=== PATIENT | male | born 1985 | race Hispanic/Latino ===

== ENCOUNTER 2016-05-14 15:36 | Emergency (ER) | payer MEDICAID ==
[2016-05-14] MEDS ORDERED: BACITRACIN 1 APP/PKT PKT TOPICAL ONE (16:05)
[2016-05-14] MEDS ORDERED: LIDOCAINE HCL 2% 20 ML VIAL ONE (16:05)
--- NOTE | 2016-05-14 16:59 | ER NURSING DOCUMENTATION ---
Nurse's Notes [facility] Name:Johnnie Freeman Age:30 yrs Sex:Male :1985 Arrival Date:05/14/2016 Time:15:36 Bed6 Private MD: Diagnosis:Finger Laceration Presentation: 05/14 15:48 Presenting complaint: Patient states: pt slipped with a knife and cut his left pointer st finger. Transition of care: patient was not received from another setting of care. 15:48 Acuity: FAYE 4 st 15:48 Method Of Arrival: Private Vehicle st Triage Assessment: 15:50 General: Appears in no apparent distress, Behavior is cooperative. Pain: Complains of st pain in dorsal aspect of middle phalanx of left index finger Pain currently is 1 out of 10 on a pain scale. Cardiovascular: No deficits noted. Respiratory: No deficits noted. GI: No deficits noted. 15:50 Injury Description: Laceration sustained to dorsal aspect of middle phalanx of left st index finger is large flap that is barley holding on over the index finger knuckle. Historical: - Allergies: Lamictal; - Home Meds: 1. Prednisone Oral 2. Wellbutrin Oral 3. Neurontin Oral - PMHx: DEPRESSION; BIPOLAR DISORDER; - PSHx: None; - Tetanus: > 10 years. - Ebola Screening: : Patient denies exposure to infectious person. Patient denies travel to an Ebola-affected area in the 21 days before illness onset. . - Social history: Smoking status: Patient uses tobacco products, current every day smoker. Patient uses alcohol on a daily basis. marijuana. Screenin:50 Infectious Disease Risk None. Abuse screen: Denies threats or abuse. Denies injuries st from another. pt feels safe at home. Nutritional screening: No deficits noted. Vital Signs: 15:45 BP 129 / 63; Pulse 116; Pulse Ox 93% on R/A; Pain 1/10; st ED Course: 15:41 Patient arrived in ED. ama 15:48 Kera Garcia, RN is Primary Nurse. st 15:[address] 15:50 Valuables Remains with patient Patient has correct armband on for positive st identification. Bed in low position. 15:52 Emmett Baker MD is Attending Physician. sc 16:03 Wound care was Irrigation Normal Saline. st 16:50 Wound care was dressed with band aid, skin flap cut off. st Administered Medications: No medications were administered Outcome: 16:45 Discharge ordered by . sc 16:57 Discharged to home ambulatory, with friend. cb 16:57 Condition: good 16:57 Discharge Assessment: Patient awake, alert and oriented x 3. No cognitive and/or functional deficits noted. Patient verbalized understanding of disposition instructions. 16:57 Discharge instructions given to patient, Instructed on discharge instructions, follow up and referral plans. Demonstrated understanding of instructions. 16:59 Patient left the ED. cb Signatures: Sera Workman, RN RN Kera Coates RN RN Emmett Brink MD MD sc Averdick, Andrew, Reg Reg ama
--- NOTE | 2016-05-14 16:59 | ER PHYSICIAN DOCUMENTATION ---
Physician Documentation [facility] Name:Johnnie Freeman Age:30 yrs Sex:Male :1985 Arrival Date:05/14/2016 Time:15:36 Bed6 Private MD: Emmett Florian Disposition: 05/14/16 16:45 Discharged to Home/Self Care. Impression: Finger Laceration. - Condition is Good. - Discharge Instructions: FINGER LACERATION - LACERATION, Hand. - Medical Reconciliation form form. - Follow up: Emergency Department; When: As needed; Reason: Worsening of condition. - Problem is new. - Symptoms have improved. HPI: 05/14 16:45 This 30 yrs old Male presents to ER via Private Vehicle with complaints of sc LACERATION TO FINGER. 16:45 The patient or guardian reports injury, skin avulsion from knife. The complaints affect sc the dorsal aspect of middle phalanx of right index finger. Context: The problem was sustained outdoors, resulted from cut. Onset: The symptom(s)/episode began/occurred just prior to arrival. Associated signs and symptoms: The patient has no apparent associated signs or symptoms. Historical: - Allergies: Lamictal; - Home Meds: 1. Prednisone Oral 2. Wellbutrin Oral 3. Neurontin Oral - PMHx: DEPRESSION; BIPOLAR DISORDER; - PSHx: None; - Tetanus: > 10 years. - Ebola Screening: : Patient denies exposure to infectious person. Patient denies travel to an Ebola-affected area in the 21 days before illness onset. . - Social history: Smoking status: Patient uses tobacco products, current every day smoker. Patient uses alcohol on a daily basis. marijuana. ROS: 16:46 Constitutional: Negative for fever, chills, and weight loss. sc Eyes: Negative for injury, pain, redness, and discharge. Neck: Negative for injury, pain, and swelling. Cardiovascular: Negative for chest pain, palpitations, and edema. Respiratory: Negative for shortness of breath, cough, wheezing, and pleuritic chest pain. Back: Negative for injury and pain. 16:46 Neuro: Negative for headache, weakness, numbness, tingling, and seizure. sc 16:46 MS/extremity: Positive for injury or acute deformity. Exam: Constitutional: This is a well developed, well nourished patient who is awake, alert, and in no acute distress. Head/Face: Normocephalic, atraumatic. Eyes: Pupils equal round and reactive to light, extra-ocular motions intact. Lids and lashes normal. Conjunctiva and sclera are non-icteric and not injected. Cornea within normal limits. Periorbital areas with no swelling, redness, or edema. Neck: Trachea midline, no thyromegaly or masses palpated, and no cervical lymphadenopathy. Supple, full range of motion without nuchal rigidity, or vertebral point tenderness. No meningismus. Cardiovascular: Regular rate and rhythm with a normal S1 and S2. No gallops, murmurs, or rubs. Normal PMI, no JVD. No pulse deficits. Respiratory: Lungs have equal breath sounds bilaterally, clear to auscultation and percussion. No rales, rhonchi or wheezes noted. No increased work of breathing, no retractions or nasal flaring. 16:47 Neuro: Awake and alert, GCS 15, oriented to person, place, time, and situation. sc Cranial nerves II-XII grossly intact. Motor strength 5/5 in all extremities. Sensory grossly intact. Cerebellar exam normal. Normal gait. 16:47 Skin: injury, avulsion(s), a small 0.5 cm(s). Vital Signs: 15:45 BP 129 / 63; Pulse 116; Pulse Ox 93% on R/A; Pain 1/10; st MDM: 15:52 Patient medically screened. sc 16:47 Differential diagnosis: nonsuturable skin avulsion over pip, right 2nd digit. Data sc reviewed: vital signs, nurses notes, and as a result, I will discharge patient. Counseling: I had a detailed discussion with the patient and/or guardian regarding: the historical points, exam findings, and any diagnostic results supporting the discharge/admit diagnosis, the need for outpatient follow up, to return to the emergency department if symptoms worsen or persist or if there are any questions or concerns that arise at home. Dispensed Medications: No medications were administered Signatures: Sera Workman RN RN cb Twombly, Summer, RN RN st Chew, Scott, MD MD ky
== END 2016-05-14 16:59 | disposition home or self-care (01) ==
LOC: ER 15:36
DX: S61.210A Laceration without foreign body of right index finger without damage to nail, initial encounter (principal); W26.0XXA Contact with knife, initial encounter; Y92.89 Other specified places as the place of occurrence of the external cause
CPT/HCPCS: 99283